=== PATIENT | female | born 1955 | race Caucasian/White ===

== ENCOUNTER 2016-12-24 15:19 | Observation (INO) | payer BC ==
[2016-12-24 16:05] LABS: Hematocrit 35 % (35-47); Hemoglobin 11.7 g/dl (12.0-16.0); Mean Corpuscular HGB Conc 33 g/dl (31-36); Mean Corpuscular Hemoglobin 30 pg (27-31); Mean Corpuscular Volume 91 fL (80-97); Mean Platelet Volume 6 um3 (7.4-10.4); Red Blood Count 3.89 10^6/ul (4.0-5.4); Red Cell Distribution Width 13 % (10.5-15); White Blood Count 8.1 10^3/ul (3.5-10.8)
[2016-12-24 16:06] LABS: Add Diff/Slide Review? Slide Review Added; Comments Flag Yes
[2016-12-24] MEDS ORDERED: Baclofen TAB* 10 MG PO PRN (16:06)
[2016-12-24] MEDS ORDERED: Formoterol 20 MCG/2ML NEB (NF) 10 MCG/ML NEB.SOLN INH PRN (16:08)
[2016-12-24] MEDS ORDERED: traMADol TAB* 50 MG PO PRN (16:11)
[2016-12-24] MEDS ORDERED: Albuterol HFA INHALER* 8 gm MDI INH PRN (16:11)
[2016-12-24] MEDS ORDERED: Benzonatate CAP* 100 MG PO PRN (16:11)
[2016-12-24 16:14] LABS: BUN/Creatinine Ratio 11.2 (8-20); C Reactive Protein 216.4 mg/L (< 5.00); Calcium 8.2 mg/dL (8.6-10.3); EGFR Non-African American 57.5 (>60)
[2016-12-24 16:24] LABS: Potassium 2.7 mmol/L (3.5-5.0)
[2016-12-24] MEDS ORDERED: Potassium Chlor TAB* 20 MEQ TAB.ER PO ONE (16:37)
[2016-12-24 16:52] LABS: Eosinophils % 5 % (0-6); Immature Granulocytes 14 % (0-9); Neutrophil % 59 % (38-83); RBC Morphology Normal (Normal); Reactive Lymph % 4 % (0-6)
[2016-12-24 16:56] LABS: Magnesium 1.9 mg/dL (1.9-2.7)
[2016-12-24] MEDS: methylPREDNISolone SOD 40 MG* 1 ML VIAL IV SCH (17:17)
[2016-12-24] MEDS: metroNIDAZOLE IV 250 MG/50ML* 50 ML IVPB SCH (17:17)
[2016-12-24] MEDS ORDERED: Budesonide NEB* 0.5 MG/2 ML NEB.SOLN INH SCH (19:00)
[2016-12-24] MEDS: KCL 20 MEQ/100 ML IVPREMIX* 20 MEQ/100 ML BAG IV SCH ×2 (19:16→21:34)
[2016-12-24] MEDS: Mometasone/Formoter 200/5 MDI INH SCH (20:10)
[2016-12-24] MEDS: Azelastine 0.15% NASAL(NF) 30 ML BTL BOTH NARES SCH (20:15)
[2016-12-24] MEDS: Azelastine 0.05% (OPHTH)(NF) 6 ML BTL BOTH EYES SCH (20:15)
[2016-12-24] MEDS: Cyclosporine 0.05% OPHTH (NF) 0.4 ML VIAL BOTH EYES SCH (20:15)
[2016-12-24] MEDS: Diclofenac 1% GEL (NF) 100 GM TUBE TOPICAL SCH (20:16)
[2016-12-24] MEDS: Hydroxychloroquine TAB* 200 MG PO SCH (20:56)
[2016-12-24] MEDS ORDERED: Montelukast Sodium TAB* 10 MG PO SCH (21:00)
[2016-12-24] MEDS ORDERED: Nortriptyline CAP* 10 MG PO SCH (21:00)
[2016-12-24] MEDS: Salsalate TAB* 500 MG PO SCH (21:02)
[2016-12-24 21:06] LABS: Erythrocyte Sed Rate 56 mm/Hr (0-30)
[2016-12-24 22:56] LABS: BUN/Creatinine Ratio 15.1 (8-20); Calcium 8.4 mg/dL (8.6-10.3); EGFR African American 78.6 (>60); EGFR Non-African American 61.1 (>60); Potassium 3.5 mmol/L (3.5-5.0)
[2016-12-25] MEDS: metroNIDAZOLE IV 250 MG/50ML* 50 ML IVPB SCH ×2 (00:11→08:03)
[2016-12-25] MEDS: methylPREDNISolone SOD 40 MG* 1 ML VIAL IV SCH ×2 (00:12→08:05)
--- NOTE | 2016-12-25 02:38 | HP ---
CC: Mikaela Kang MD * HISTORY AND PHYSICAL: DATE OF ADMISSION: 12/24/16 PRIMARY CARE PROVIDER: Mikaela Kang MD ATTENDING PHYSICIAN: Zandra Salmeron DO * (dictated by Karla Felipe NP) CHIEF COMPLAINT: Diarrhea and bloody stools for 4 months. HISTORY OF PRESENT ILLNESS: Ms. Romero is a 60-year-old female with past medical history significant for rheumatoid arthritis, sarcoidosis of the lungs, benign neoplasm of the colon, irritable bowel syndrome, asthma, hypertension, and psoriasis, who presented to the hospital today for a colonoscopy. The patient states that prior to prep for the procedure, she has been feeling well, although she reports having a fever of 102.8 last night with associated chills. The patient denies any shortness of breath or chest pain. She reports nausea during the colonoscopy prep. The patient states that she has been having diarrhea and bloody stools for the last 4 months and she has recently lost approximately 7 pounds. The patient had stool cultures sent on 12/09/16 that were negative for C. Diff and negative for Shiga toxin 1 and 2. The patient was referred to [facility] for evaluation and possible colonoscopy. The patient was scheduled for colonoscopy today with Dr. Looney at which time, she was found to have ulcerative colitis and it was felt that the patient should stay overnight as an observation. Hospitalists were asked to evaluate the patient for admission. PAST MEDICAL HISTORY: 1. Rheumatoid arthritis. 2. Sarcoidosis of the lungs. 3. Benign neoplasm of the colon. 4. Irritable bowel syndrome. 5. Asthma. 6. Hypertension. 7. Psoriasis. PAST SURGICAL HISTORY: 1. Status post left ovarian resection in 1974. 2. Status post tonsillectomy in 1964. HOME MEDICATIONS: 1. Tramadol 50 mg oral every 6 hours as needed for pain. 2. Salsalate 750 mg oral twice daily. 3. Nortriptyline 20 mg oral daily at bedtime. 4. Singulair 10 mg oral daily at bedtime. 5. Losartan/hydrochlorothiazide 100/12.5 mg 1 tablet oral daily. 6. Xyzal Allergy 5 mg oral daily. 7. Plaquenil 200 mg oral twice daily. 8. Perforomist neb 20 mcg inhalations twice daily as needed for shortness of breath or wheeze. 9. Diclofenac 1% apply topical twice daily. 10. Cyclosporine 0.05% ophthalmic 1 drop to both eyes twice daily. 11. Os-Zoran Ultra 1 tablet oral daily. 12. Symbicort 160/4.5 two puffs inhalation twice daily. 13. Pulmicort neb 0.5 mg inhalation twice daily. 14. Rhinocort 32 mcg nasally daily. 15. Tessalon 100 mg oral 3 times daily as needed for cough. 16. Baclofen 5 mg oral 3 times daily as needed for muscle spasms. 17. Astepro 0.15% 2 sprays nasally twice daily. 18. Optivar 0.05% 1 drop to both eyes twice daily. 19. Albuterol HFA 1 to 2 puffs inhalation every 4 hours as needed for shortness of breath or wheeze. ALLERGIES: LISINOPRIL and SEASONAL ALLERGIES. FAMILY HISTORY: The patient denies any family history of coronary artery disease, diabetes mellitus or cancer. SOCIAL HISTORY: The patient denies tobacco or recreational drug use. She occasionally drinks alcoholic beverages. The patient currently works fulltime at the [employer] and lives with her . Her , Natalia Romero, will be her surrogate decision maker in the event that she is unable to make decisions for herself. REVIEW OF SYSTEMS: I performed a 14-point review of systems. All the pertinent positives and negatives are mentioned in the history of present illness. The remaining of review of systems are negative. PHYSICAL EXAMINATION GENERAL APPEARANCE: The patient is alert, pleasant, appears to be in no acute distress. VITAL SIGNS: Temperature 97.3, heart rate 77, respiratory rate 14, O2 sat 98% on room air, blood pressure 101/45. HEENT: Normocephalic, atraumatic. Pupils are equal and reactive to light. Extraocular movements are intact. RESPIRATORY: There is no accessory muscle use and her lungs are clear to auscultation bilaterally. CARDIOVASCULAR: Regular rate and rhythm. S1 and S2 are present. There are no murmurs, rubs, or gallops heard. ABDOMEN: Soft, nondistended, and tender in the left lower quadrant. There are bowel sounds present x4. EXTREMITIES: There is no lower extremity edema. DP and PT pulses are 2+ and symmetric. MUSCULOSKELETAL: There is no clubbing or cyanosis noted. The patient exhibits good strength in all extremities. NEUROLOGICAL: The patient is alert and oriented x4. Cranial nerves II through XII are grossly intact. PSYCHOLOGICAL: The patient is calm and cooperative. SKIN: There is no rash or abnormalities seen. DIAGNOSTIC STUDIES/LAB DATA: Sodium 135, potassium 2.7, chloride 99, CO2 27, BUN 11, creatinine 0.98 and glucose 105. CRP 216.40. White blood cell count 8.1, hemoglobin 11.7, hematocrit 35, and platelet count 307,000. ESR pending. Magnesium 1.9. IMPRESSION: Ms. Romero is a 61-year-old female with past medical history significant for rheumatoid arthritis, sarcoidosis of the lungs, benign neoplasm of the colon, irritable bowel syndrome, asthma, hypertension, and psoriasis, who presented to the hospital for colonoscopy for evaluation of 4 months of diarrhea and bloody stools. She will be admitted as an observation for ulcerative colitis. ASSESSMENT/PLAN: 1. Ulcerative colitis. Colonoscopy from today, shows ulcerative colitis. The patient will be placed on low dose Solu-Medrol 30 mg IV every 8 hours in addition to Flagyl IV 250 mg IV every [address] her on a bland soft diet. We will check CRP and ESR. 2. Hypokalemia. The patient will receive 40 mEq of oral potassium in addition to 2 g of 20 mEq of IV potassium today. Her magnesium is within normal limits. We will recheck her electrolytes in the morning. I suspect this is related to the bowel prep and the patient's chronic diarrhea. 3. Hypertension. The patient has actually been on the hypotensive side post procedure. We will continue her losartan and hydrochlorothiazide, but with hold parameters to hold for systolic less than 110. 4. Fluids, electrolytes, and nutrition. The patient will be on a bland soft diet. 5. Code status. Full code. 6. DVT prophylaxis. The patient is at highest risk, but due to her current ulcerative colitis and history of GI bleeding, we will hold on chemical DVT prophylaxis. Encouraged her to ambulate and use SCD's. 7. Disposition. Observation. TIME SPENT: Time for this admission was 60 minutes, greater than half of that was spent with the patient and her discussing medications, past medical history, events leading up to her arrival today, and performing a physical examination. The case has been discussed with the attending, Dr. Salmeron, who agrees with the plan of care. Reviewed by ABIGAIL MUNIZ 12/29/16 1243 [id number]/[facility] #: [id number] SOLE
[2016-12-25 06:12] LABS: Hematocrit 39 % (35-47); Hemoglobin 13.1 g/dl (12.0-16.0); Mean Corpuscular HGB Conc 34 g/dl (31-36); Mean Corpuscular Hemoglobin 30 pg (27-31); Mean Corpuscular Volume 90 fL (80-97); Mean Platelet Volume 6 um3 (7.4-10.4); Red Blood Count 4.34 10^6/ul (4.0-5.4); Red Cell Distribution Width 13 % (10.5-15); White Blood Count 7.1 10^3/ul (3.5-10.8)
[2016-12-25 06:30] LABS: BUN/Creatinine Ratio 14.8 (8-20); Calcium 9.1 mg/dL (8.6-10.3); EGFR African American 92.1 (>60); EGFR Non-African American 71.6 (>60); Magnesium 2.2 mg/dL (1.9-2.7); Potassium 3.7 mmol/L (3.5-5.0)
[2016-12-25] MEDS: Cyclosporine 0.05% OPHTH (NF) 0.4 ML VIAL BOTH EYES SCH (07:21)
[2016-12-25] MEDS: Azelastine 0.05% (OPHTH)(NF) 6 ML BTL BOTH EYES SCH (07:21)
[2016-12-25] MEDS: Azelastine 0.15% NASAL(NF) 30 ML BTL BOTH NARES SCH (07:21)
[2016-12-25] MEDS: Diclofenac 1% GEL (NF) 100 GM TUBE TOPICAL SCH (07:21)
[2016-12-25] MEDS: Hydroxychloroquine TAB* 200 MG PO SCH (08:04)
[2016-12-25] MEDS: Mometasone/Formoter 200/5 MDI INH SCH (08:05)
[2016-12-25] MEDS: Salsalate TAB* 500 MG PO SCH (08:05)
[2016-12-25 08:11] VITALS: BP 121/68
--- NOTE | 2016-12-25 08:11 | PN ---
Subjective Date of Service: 12/25/16 Interval History: Patient seen this morning. Feeling well, no fever or chills. Mild abdominal "rumblings", still with some watery stool, minimal if any bleeding. Tolerating PO with no issues. Patient very anxious to leave. Family History: Unchanged from Admission Social History: Unchanged from Admission Past Medical History: Unchanged from Admission Objective Active Medications: Albuterol (Ventolin Hfa Inhaler*) 2 puff INH Q4H PRN Azelastine HCl (Astepro 0.15% Nasal (Nf)) 2 spray BOTH NARES BID GUZMAN Azelastine HCl (Optivar 0.05% (Nf)) 1 drop BOTH EYES BID GUZMAN Baclofen (Lioresal Tab*) 5 mg PO TID PRN Benzonatate (Tessalon Cap*) 100 mg PO TID PRN Calcium/Vitamin D (Oscal D Tab 250/125*) 2 tab PO DAILY GUZMAN Cetirizine HCl (Zyrtec*) 10 mg PO DAILY GUZMAN Cyclosporine (Restasis 0.05% Oph) 1 drop BOTH EYES BID GUZMAN Diclofenac Sodium (Voltaren 1% Gel (Nf)) 1 applic TOPICAL BID GUZMAN Fluticasone Propionate (Flonase Nasal [place] 50mcg*) 1 spray BOTH NARES DAILY GUZMAN Formoterol Fumarate (Perforomist Neb.Soln*(Nf)) 20 mcg INH BID PRN Hydroxychloroquine Sulfate (Plaquenil Tab*) 200 mg PO BID GUZMAN Metronidazole/Sodium Chloride (Flagyl 250 Mg Ivpb*) 50 mls @ 50 mls/hr IVPB Q8H GUZMAN Methylprednisolone Sodium Succinate (Solu-Medrol 40 Mg) 30 mg IV Q8H GUZMAN Mometasone Furoate/Formoterol Fumar (Dulera 200/5 Mdi*) 2 puff INH BID GUZMAN Montelukast Sodium (Singulair Tab*) 10 mg PO BEDTIME GUZMAN Nortriptyline HCl (Pamelor Cap*) 20 mg PO BEDTIME GUZMAN Salsalate (Disalcid*) 750 mg PO BID GUZMAN Tramadol HCl (Ultram*) 50 mg PO Q6H PRN Vital Signs 12/24/16 12/24/16 12/24/16 15:41 16:33 16:47 Temperature 97.3 F 98.0 F Pulse Rate 77 81 Respiratory 14 14 21 Rate Blood Pressure 101/45 114/41 (mmHg) O2 Sat by Pulse 98 98 Oximetry 12/24/16 12/24/16 12/25/16 22:04 23:39 03:24 Temperature 99.2 F 98.3 F 97.9 F Pulse Rate 86 81 74 Respiratory 19 16 16 Rate Blood Pressure 117/42 111/61 122/52 (mmHg) O2 Sat by Pulse 96 95 100 Oximetry Oxygen Devices in Use Now: None Appearance: Middle-aged, F, laying in bed in NAD Eyes: No Scleral Icterus Ears/Nose/Mouth/Throat: Mucous Membranes Moist Neck: NL Appearance and Movements; NL JVP Respiratory: Symmetrical Chest Expansion and Respiratory Effort, Clear to Auscultation Cardiovascular: NL Sounds; No Murmurs; No JVD, RRR Abdominal: - - Soft, non-distended, mild TTP in LUQ, BS+ Lymphatic: No Cervical Adenopathy Extremities: No Edema Skin: No Rash or Ulcers Neurological: Alert and Oriented x 3 Result Diagrams: 12/25/16 05:50 12/25/16 05:50 Assess/Plan/Problems-Billing Assessment: Newly diagnosed ulcerative colitis in a 61 yo F with hx of RA, HTN, sarcoidosis , asthma, psoriasis - Patient Problems (1) Ulcerative colitis Current Visit: Yes Comment: S/P colonoscopy on 12/25, final report pending but images show extensive colitis. Continue IV solumedrol and flagyl for now. Patient still with some loose stools but not reporting any significant bleeding. Dr. Whitehead to see the patient to discuss diagnosis and treatment and ?need for additional IV steroids. (2) Hypokalemia Current Visit: Yes Comment: Resolved (3) HTN (hypertension) Current Visit: Yes Comment: BPs soft. Hold Losartan and HCTZ for now. (4) Rheumatoid arthritis Current Visit: Yes Comment: Continue plaquenil (5) DVT prophylaxis Current Visit: Yes Comment: SCDs Status and Disposition: Potential discharge later today
[2016-12-25] MEDS ORDERED: Cetirizine* 10 MG TAB PO SCH (09:00)
[2016-12-25] MEDS ORDERED: Fluticasone NASAL SPRAY 50MCG* 16 gm SPRAY BTL BOTH NARES SCH (09:00)
[2016-12-25] MEDS ORDERED: Losartan TAB* 25 MG PO SCH ×2 (09:00)
[2016-12-25] MEDS ORDERED: Hydrochlorothiazide TAB* 25 MG PO SCH ×2 (09:00)
[2016-12-25] MEDS ORDERED: Calcium/Vitamin D TAB 250/125* TAB PO SCH (09:00)
--- NOTE | 2016-12-26 10:12 | DS ---
CC: Dr. Mikaela Kang; Dr. Satya Looney, GI DISCHARGE SUMMARY: DATE OF ADMISSION: 12/24/16 DATE OF DISCHARGE: 12/25/16 PRIMARY CARE PHYSICIAN: Dr. Mikaela Kang PRINCIPAL DISCHARGE DIAGNOSIS: Ulcerative colitis. SECONDARY DIAGNOSES: 1. Rheumatoid arthritis. 2. Sarcoidosis. 3. Asthma. 4. Hypertension. 5. Psoriasis. DISCHARGE MEDICATION REGIMEN: 1. Tramadol 50 mg by mouth every 6 hours as needed for pain. 2. Disalcid 750 mg by mouth 2 times daily. 3. Nortriptyline 20 mg by mouth at bedtime. 4. Singulair 10 mg by mouth at bedtime. 5. Hyzaar 100/12.5 one tablet by mouth daily. 6. Xyzal 5 mg by mouth daily. 7. Plaquenil 200 mg by mouth 2 times daily. 8. Formoterol 20 mcg inhaled 2 times daily as needed for shortness of breath. 9. Voltaren gel 1 application topical 2 times daily. 10. Restasis 1 drop in both eyes 2 times daily. 11. Calcium carbonate, vitamin D 1 tablet by mouth daily. 12. Symbicort 2 puffs inhaled 3 times daily. 13. Budesonide 0.5 mg inhaled 3 times daily. 14. Budesonide 32 mcg nasal daily. 15. Tessalon 100 mg by mouth 3 times daily as needed for cough. 16. Baclofen 5 mg by mouth 3 times daily as needed for back pain. 17. Astepro 2 sprays nasal 2 times daily. 18. Optivar 1 drop in both eyes 2 times daily. 19. Albuterol 1 to 2 puffs inhaled every 4 hours as needed for shortness of breath or wheezing. Dr. Whitehead to call in for prescriptions for Lialda and prednisone taper. HISTORY OF PRESENT ILLNESS AND HOSPITAL SUMMARY: Please see the full history and physical by Karla Serrato for full details. Briefly, Ms. Romero is a 61-year-old female with past medical history as above, who presented to the hospital for elective colonoscopy after having recent episod es of bloody bowel movements. Colonoscopy report is not finalized at this time, but the patient had findings consistent with ulcerative colitis. She was monitored overnight on IV steroids. Followin g day, she felt stable, was eating and drinking with no issues, still having watery stools but with minimal blood. The patient was seen by Dr. Whitehead and he felt that it was okay for the patient be discharged home. He call in a prescription for Lialda and a prednisone taper to her pharmacy. She will follow up with Dr. Looney and her PCP as an outpatient. TIME SPENT: Total time spent on this discharge was 35 minutes. This is a summary of the hospitalization, please see the full medical record for further details. [id number]/[facility] #: [id number]
== END 2016-12-25 11:30 | disposition home or self-care (01) ==
LOC: SSU 15:36
PROVIDERS: ADMIT Hospitalist; ATTEND Hospitalist
DX: K51.90 Ulcerative colitis, unspecified, without complications (principal); E87.6 Hypokalemia; M06.9 Rheumatoid arthritis, unspecified; D86.9 Sarcoidosis, unspecified; J45.909 Unspecified asthma, uncomplicated; I10 Essential (primary) hypertension; L40.9 Psoriasis, unspecified; Z79.899 Other long term (current) drug therapy
CPT/HCPCS: 36415; 80048; 83735; 85025; 85652; 86140; 94640; 94760; 96365; 96366; 96367; 96375; 96376; A9270-GY; G0378; J2920; J3480